=== PATIENT | female | born 1975 | race Caucasian/White ===

== ENCOUNTER 2018-10-30 20:15 | Emergency (ER) | payer BC ==
[2018-10-30 20:30] VITALS: BP 103/67
[2018-10-30] MEDS ORDERED: Phenazopyridine TAB* 100 MG PO ONE ×2 (20:47→20:48)
[2018-10-30] MEDS ORDERED: Nitrofurantoin Macrocrystals* 50 MG CAP PO ONE ×2 (20:47→20:48)
--- NOTE | 2018-10-30 20:48 | UC ---
Complaint Female HPI - HPI Summary HPI Summary: 43-year-old woman comes to clinic today with a chief complaint of burning with urination and right flank pain. This started 5 days ago. Denies any abnormal vaginal discharge or concern of STI. No change in bowels or eating. There is a constant right flank pain. When the patient urinates she has pain in the urethra that is worse with urination it's better when she is not urinating. Both these areas of pain of been getting worse in the last 5 days. His been taking ibuprofen which does help some with the pain. No fevers no prior history of kidney stones. - History Of Current Complaint Chief Complaint: UCGU Stated Complaint: POSS UTI Time Seen by Provider: 10/30/18 20:20 Hx Last Menstrual Period: 10/22/18 Pain Intensity: 6 - Allergies/Home Medications Allergies/Adverse Reactions: Allergies Allergy/AdvReac Type Severity Reaction Status Date / Time amoxicillin Allergy Severe Hives Verified 10/30/18 20:36 Sulfa (Sulfonamide Allergy Severe Hives Verified 10/30/18 20:36 Antibiotics) PMH/Surg Hx/FS Hx/Imm Hx Previously Healthy: Yes - Surgical History Surgical History: Yes Surgery Procedure, Year, and Place: 2x c-sections. appendectomy - Family History Known Family History: Positive: Non-Contributory - Social History Alcohol Use: Occasionally Substance Use Type: None Smoking Status (MU): Never Smoked Tobacco Review of Systems All Other Systems Reviewed And Are Negative: Yes Constitutional: Positive: Negative Skin: Positive: Negative Eyes: Positive: Negative ENT: Positive: Negative Respiratory: Positive: Negative Cardiovascular: Positive: Negative Gastrointestinal: Positive: Other - RT FLANK PAIN Genitourinary: Positive: Dysuria, Frequency, Urgency Motor: Positive: Negative Neurovascular: Positive: Negative Musculoskeletal: Positive: Negative Neurological: Positive: Negative Psychological: Positive: Negative Is Patient Immunocompromised?: No Physical Exam Triage Information Reviewed: Yes Appearance: Well-Appearing, Well-Nourished, Pain Distress - MILD Vital Signs: Initial Vital Signs Temp 98.8 F 10/30/18 20:23 Pulse 78 10/30/18 20:23 Resp 15 10/30/18 20:23 BP 103/67 10/30/18 20:23 Pulse Ox 99 10/30/18 20:23 Vital Signs Reviewed: Yes Eye Exam: Normal Eyes: Positive: Conjunctiva Clear Neck exam: Normal Neck: Positive: Supple Respiratory: Positive: Lungs clear, Normal breath sounds, No respiratory distress Cardiovascular: Positive: RRR Abdomen Description: Positive: Soft, CVA Tenderness (R), Other: - MILD SUPRAPUBIC TENDERNESS TO PALPATION. Negative: Distended, Guarding Bowel Sounds: Positive: Present Musculoskeletal Exam: Normal Musculoskeletal: Positive: Strength Intact, ROM Intact Neurological Exam: Normal Neurological: Positive: Alert, Muscle Tone Normal Psychological Exam: Normal Psychological: Positive: Age Appropriate Behavior Skin Exam: Normal Complaint Female Dx - Course Course Of Treatment: Patient has right flank pain and also dysuria. Both of these pain started at same time. There is both blood and leukocyte Estrace in the urine. No nitrates in the urine. Kidney stone is a possibility however it is unlikely she would NOT have dysuria with a kidney stone. We'll treat THE urinary tract infection with Macrobid and Pyridium. I discussed with her potential diagnoses of pyelonephritis and kidney stone and let her know that if she did not improve or if she worsens with fever pain she needed to get further evaluation in the emergency department. - Differential Dx/Diagnosis Provider Diagnosis: UTI (urinary tract infection), Hematuria, Flank pain Discharge - Sign-Out/Discharge Documenting (check all that apply): Patient Departure All imaging exams completed and their final reports reviewed: No Studies - Discharge Plan Condition: Stable Disposition: HOME Prescriptions: Nitrofurantoin Monohyd/M-Cryst [Macrobid 100 mg Capsule] 100 mg PO BID #18 cap Phenazopyridine 200 mg (NF) [Pyridium 200 MG tab *] 200 mg PO TID #6 tab Patient Education Materials: Urinary Tract Infection in Women (ED), Hematuria ( ED), Flank Pain (ED) Referrals: Wiliam Downey MD [Primary Care Provider] - Additional Instructions: FOLLOW UP WITH YOUR DOCTOR. GO TO THE EMERGENCY DEPARTMENT FOR ANY WORSENING OF YOUR CONDITION; PAIN, FEVER , YOU FEEL ILL, YOU ARE NOT IMPROVING OR QUESTIONS OR CONCERNS. - Billing Disposition and Condition Condition: STABLE Disposition: Home
== END 2018-10-30 21:00 | disposition home or self-care (01) ==
LOC: UCEAST 20:15
DX: N39.0 Urinary tract infection, site not specified (principal); R31.9 Hematuria, unspecified; R10.9 Unspecified abdominal pain; Z88.0 Allergy status to penicillin; Z88.2 Allergy status to sulfonamides
CPT/HCPCS: 81003; 84702; 87086; 99213; A9270-GY; G0463

== ENCOUNTER 2018-10-30 23:51 | Emergency (ER) | payer BC ==
[2018-10-31] MEDS ORDERED: NS 0.9% 1000 ML* 1,000 ML IV ONE (00:06)
[2018-10-31] MEDS ORDERED: Ketorolac INJ* 30 MG/ML 1 ML VIAL IV PUSH ONE (00:06)
--- NOTE | 2018-10-31 00:43 | ED ---
GI/ HPI - HPI Summary HPI Summary: Pt is a 43 y/o female who presents to the ED c/o flank pain. She states 7 days ago she began to have some mild right flank pain, with twinging during urination. Pt went to the last night and was diagnosed with a UTI and prescribed Macrobid and Pyridium. Tonight the pain became worse, rated a 9/10 in severity and described as achy and sharp. Pt states the pain radiates to her RLQ. She also c/o nausea and some spots of blood in her urine, but denies any vomiting or fever. Pt denies any hx of kidney stones. LNMP 9-10 days ago. - History of Current Complaint Chief Complaint: EDFlankPain Time Seen by Provider: 10/31/18 00:06 Stated Complaint: BACK/ABD PAIN Hx Obtained From: Patient Hx Last Menstrual Period: 10/22/18 Onset/Duration: Started Days Ago - 7, Worse Since Timing: Constant Current Severity: Severe Pain Intensity: 9 Location of Pain: Flank - right Pain Radiates to: RLQ Associated Signs and Symptoms: Positive: Nausea, Hematuria, Flank Pain. Negative: Vomiting, Fever Aggravating Factor(s): Nothing Alleviating Factor(s): Nothing - Allergy/Home Medications Allergies/Adverse Reactions: Allergies Allergy/AdvReac Type Severity Reaction Status Date / Time amoxicillin Allergy Severe Hives Verified 10/31/18 00:01 Sulfa (Sulfonamide Allergy Severe Hives Verified 10/31/18 00:01 Antibiotics) PMH/Surg Hx/FS Hx/Imm Hx Endocrine/Hematology History: Denies: Hx Diabetes, Hx Thyroid Disease Cardiovascular History: Denies: Hx Hypertension Respiratory History: Denies: Hx Asthma, Hx Chronic Obstructive Pulmonary Disease (COPD) GI History: Denies: Hx Ulcer History: Denies: Hx Kidney Stones - Cancer History Hx Chemotherapy: No Hx Radiation Therapy: No - Surgical History Surgery Procedure, Year, and Place: 2x c-sections. appendectomy - Immunization History Date of Tetanus Vaccine: unk Date of Influenza Vaccine: fall 2017 Infectious Disease History: No Infectious Disease History: Denies: Hx Clostridium Difficile, Hx Hepatitis, Hx Human Immunodeficiency Virus (HIV), Hx of Known/Suspected MRSA, Hx Shingles, Hx Tuberculosis, Traveled Outside the [place] in Last 30 Days - Family History Known Family History: Negative: Cardiac Disease, Diabetes - Social History Alcohol Use: Weekly Hx Substance Use: No Substance Use Type: Reports: None Hx Tobacco Use: No Smoking Status (MU): Never Smoked Tobacco Review of Systems Negative: Fever Positive: Abdominal Pain, Nausea. Negative: Vomiting Positive: flank pain, hematuria All Other Systems Reviewed And Are Negative: Yes Physical Exam - Summary Physical Exam Summary: Appearance: Well appearing, mild pain distress Skin: warm, dry, reflects adequate perfusion Head/face: normal Eyes: EOMI, QUENTIN ENT: mucous membranes moist Neck: supple, non-tender Respiratory: CTA, breath sounds present Cardiovascular: RRR, pulses symmetrical Abdomen: non-tender, soft, no CVA tenderness Bowel Sounds: present Musculoskeletal: normal, strength/ROM intact Neuro: normal, sensory motor intact, A&Ox3 Triage Information Reviewed: Yes Vital Signs On Initial Exam: Initial Vitals Temp Pulse Resp BP Pulse Ox 98.6 F 89 16 120/80 98 10/30/18 23:56 10/30/18 23:56 10/30/18 23:56 10/30/18 23:56 10/30/18 23:56 Vital Signs Reviewed: Yes Diagnostics - Vital Signs Vital Signs Temp Pulse Resp BP Pulse Ox 10/30/18 23:56 98.6 F 89 16 120/80 98 - Laboratory Result Diagrams: 10/31/18 00:38 10/31/18 00:38 Lab Statement: Any lab studies that have been ordered have been reviewed, and results considered in the medical decision making process. - CT CT A/P CT Interpretation Completed By: Radiologist Summary of CT Findings: Moderate right hydronephrosis and hydroureter, likely secondary to a 4 x 9 mm calculus near the right UVJ, either lodged at the UVJ or recently passed into the bladder. Additional CT images in the prone position with distended bladder may be helpful to better localize the stone if clinically indicated. ED physician reviewed radiology report. Re-Evaluation - Re-Evaluation First Eval Re-Evaluation Time: 02:00 Change: Improved Comment: Pt feels better after the Toradol. Second Eval Re-Evaluation Time: 02:35 Change: Improved Comment: Pt is feeling fine and is ready to be discharged. GIGU Course/Dx - Course Course Of Treatment: Nurse's notes reviewed. Patient presents with classic renal colic. There is blood in the urine that was obtained at urgent care. There is no evidence for infection. She did take a dose of antibiotic prior to coming. Urinalysis here is not helpful as it is discolored by peridium. CT scan was positive for 4 mm wide stone that is 9 mm deep and at the UVJ. Her colic was mostly resolved with Toradol, hydration. It began to come back at time of disposition and so oral Percocet was given here. There is no evidence for admission at this time. She had been given a dose of Flomax here. I have discussed return instructions for her and follow-up. - Diagnoses Differential Diagnoses - Female: Other - Renal colic, UTI, pyelonephritis, back strain Provider Diagnoses: Renal colic, Ureterolithiasis Discharge - Sign-Out/Discharge Documenting (check all that apply): Patient Departure - Discharge - Discharge Plan Condition: Improved Disposition: HOME Prescriptions: Naproxen [Naproxen 500 mg tab] 500 mg PO BID PRN #10 tablet.dr PRN Reason: Pain Ondansetron ODT TAB* [Zofran 4 MG Odt TAB*] 4 mg PO Q8H PRN #10 tab.odt PRN Reason: Nausea Oxycodone HCl/Acetaminophen [Percocet 5-325 mg Tablet] 1 each PO TID PRN #10 tablet MDD 3 PRN Reason: more severe pain Patient Education Materials: Kidney Stones (ED) Forms: *Work Release Referrals: Wiliam Downey MD [Primary Care Provider] - Charly Santiago MD [Medical Doctor] - Additional Instructions: Drink plenty of fluids. Return with fever, vomiting, uncontrolled pain, worse or other concerns. Call on Wednesday to schedule appointment with your primary care physician. They can refer you to urology. - Billing Disposition and Condition Condition: IMPROVED Disposition: Home - Attestation Statements Document Initiated by Scribe: Yes Documenting Scribe: Akila Dolan Provider For Whom Zeny is Documenting (Include Credential): Jeanmarie Whelan MD Scribe Attestation: Akila Stallworth, scribed for Jeanmarie Whelan MD on 10/31/18 at 0347. Scribe Documentation Reviewed: Yes Provider Attestation: The documentation as recorded by the Akila hahn accurately reflects the service I personally performed and the decisions made by me, Jeanmarie Whelan MD Status of Scribe Document: Viewed
[2018-10-31 00:45] LABS: ABS Basophils 0 10^3/ul (0-0.2); ABS Eosinophils 0.4 10^3/ul (0-0.6); ABS Lymphocytes 2.2 10^3/ul (1.0-4.8); ABS Monocytes 0.6 10^3/ul (0-0.8); ABS Neutrophils 6.7 10^3/ul (1.5-7.7); ABS Nucleated RBC 0 10^3/ul; Eosinophil % 3.7 %; Hematocrit 37 % (35-47); Hemoglobin 12.8 g/dl (12.0-16.0); Lymphocyte % 22.5 %; Mean Corpuscular HGB Conc 34 g/dl (31-36); Mean Corpuscular Hemoglobin 33 pg (27-31); Mean Corpuscular Volume 97 fL (80-97); Mean Platelet Volume 8.5 fL (7.4-10.4); Nucleated Red Blood Cells % 0; Platelet Count 228 10^3/ul (150-450); Red Blood Count 3.84 10^6/ul (4.00-5.40); Red Cell Distribution Width 13 % (10.5-15); White Blood Count 9.9 10^3/ul (3.5-10.8)
[2018-10-31 01:02] LABS: ALT 13 U/L (7-52); AST 19 U/L (13-39); Albumin 4.4 g/dL (3.2-5.2); Albumin/Globulin Ratio 1.6 (1-3); Alkaline Phosphatase 46 U/L (34-104); Anion Gap 6 mmol/L (2-11); BUN/Creatinine Ratio 26.8 (8-20); Blood Urea Nitrogen 22 mg/dL (6-24); CO2 Carbon Dioxide 26 mmol/L (22-32); Calcium 9.3 mg/dL (8.6-10.3); Chloride 101 mmol/L (101-111); EGFR Non-African American 75.7 (>60); Globulin 2.8 g/dL (2-4); Glucose 119 mg/dL (70-100); Potassium 3.5 mmol/L (3.5-5.0); Sodium 133 mmol/L (135-145); Total Protein 7.2 g/dL (6.4-8.9)
[2018-10-31 01:09] LABS: HCG Pregnancy < 0.60 mIU/mL
[2018-10-31] MEDS ORDERED: Tamsulosin CAP* 0.4 MG PO ONE (02:03)
[2018-10-31] MEDS ORDERED: oxyCODONE/Acetamin 5/325 MG* TAB PO ONE (03:02)
[2018-10-31 03:22] VITALS: BP 101/73
== END 2018-10-31 03:19 | disposition home or self-care (01) ==
LOC: ED 23:51
DX: N13.2 Hydronephrosis with renal and ureteral calculous obstruction (principal); Z87.442 Personal history of urinary calculi
CPT/HCPCS: 36415; 74176; 80053; 84702; 85025; 96361; 96374; 99283; A9270-GY; J1885